=== PATIENT | male | born 1985 | race American Indian/Alaskan Native ===

== ENCOUNTER 2016-12-28 17:20 | Emergency (ER) | payer SELFPAY ==
[2016-12-28 18:53] LABS: Alanine Aminotransferase 16 units/L (7-56); Albumin 4.4 g/dL (3.9-5); Albumin/Globulin Ratio 1.3 %; Alkaline Phosphatase 71 units/L (35-129); Anion Gap 18 mmol/L; BUN/Creatinine Ratio 13.75; Bilirubin,Total 0.5 mg/dL (0.1-1.2); Blood Urea Nitrogen 11 mg/dL (9-20); Carbon Dioxide 27 mmol/L (22-30); Chloride 100.1 mmol/L (98-107); Glucose 79 mg/dL (75-100); Lipase 18 units/L (13-60); Sodium 141 mmol/L (137-145); Total Protein 7.8 g/dL (6.3-8.2)
[2016-12-28 18:58] LABS: Hematocrit 46.5 % (35.5-45.6); Hemoglobin 14.8 gm/dl (11.8-15.2); Mean Corpuscular HGB Conc 32 % (32-34); Mean Corpuscular Hemoglobin 27 pg (28-32); Mean Corpuscular Volume 84 fl (84-94); Platelet Count 132 K/mm3 (140-440); Red Blood Count 5.51 M/mm3 (3.65-5.03); Red Cell Distribution Width 14.5 % (13.2-15.2); White Blood Count 5.9 K/mm3 (4.5-11.0)
[2016-12-28 19:07] LABS: Basophils % (Auto) 0.5 % (0.0-1.8); Eosinophils % (Auto) 1.4 % (0.0-4.3)
[2016-12-28 19:20] LABS: Bilirubin,Urine NEG (Negative); Blood,Urine NEG (Negative); Ketones,Urine NEG (Negative); Leukocyte Esterase,Urine NEG (Negative); Mucus,Urine FEW /HPF; Nitrite,Urine NEG (Negative); Protein,Urine <15 mg/dL mg/dL (Negative)
[2016-12-28 19:38] LABS: Basophils % (Manual) 0 % (0.0-1.8); Blastocytes % (Manual) 0 %
[2016-12-28 19:39] LABS: Anisocytosis 1+; Large Platelets 1+; Platelet Estimate Consistent w Auto; Poikilocytosis 1+
[2016-12-28 19:40] LABS: Diff Status Complete
--- NOTE | 2016-12-28 21:27 | Emergency Department Report ---
HPI - General Chief Complaint: Abdominal Pain Time Seen by Provider: 12/28/16 21:25 - HPI HPI: This is a 31-year-old Afro-Stateless male presents to the emergency department with a one-week history of epigastric and right upper quadrant abdominal pain. Patient says he had a history of this when he was in jail and "they did not do anything about it." He just got out of jail in November of this year. He says that the pain as a burning sensation and it worsens after eating. He denies any fever, nausea, vomiting, diarrhea, back pain. He took some Pepto- Bismol and one Motrin per day over this time but is not on any relief. He only has a past medical history of herpes. He is a tobacco smoker. He does not have a primary care doctor. No recent travel or sick contacts at home. ED Past Medical Hx - Past Medical History Previous Medical History?: No - Surgical History Past Surgical History?: No - Medications Home Medications: Home Medications Medication Instructions Recorded Confirmed Last Taken Type Famotidine [Pepcid] 40 mg PO QDAY #30 tablet 12/29/16 Unknown Rx ED Review of Systems ROS: Stated complaint: DIZZINESS Other details as noted in HPI Comment: All other systems reviewed and negative Constitutional: denies: chills, fever Eyes: denies: eye pain, eye discharge, vision change ENT: denies: ear pain, throat pain Respiratory: denies: cough, shortness of breath, wheezing Cardiovascular: denies: chest pain, palpitations Gastrointestinal: abdominal pain. denies: nausea, vomiting Genitourinary: denies: urgency, dysuria Musculoskeletal: denies: back pain, joint swelling, arthralgia Skin: denies: rash, lesions Neurological: denies: headache, weakness, paresthesias Physical Exam - Physical Exam Vital Signs: Vital Signs 12/28/16 12/28/16 18:07 21:16 Temperature 98.6 F Pulse Rate 72 58 L Respiratory 17 18 Rate Blood Pressure 116/62 Blood Pressure 140/78 [Left] O2 Sat by Pulse 99 100 Oximetry Physical Exam: GENERAL: The patient is well-developed well-nourished. HEENT: Normocephalic. Atraumatic. Extraocular motions are intact. Patient has moist mucous membranes. Pupils equal reactive to light bilaterally. NECK: Supple. Trachea is midline. CHEST/LUNGS: Clear to auscultation. There is no respiratory distress noted. HEART/CARDIOVASCULAR: Regular. There is no tachycardia. There is no gallop rub or murmur. ABDOMEN: Abdomen is soft. There is some tenderness to palpation to the epigastric and right upper quadrants of the abdomen. No guarding or rebound tenderness. No peritoneal signs. Patient has normal bowel sounds. There is no abdominal distention. SKIN: There is no rash. There is no edema. There is no diaphoresis. NEURO: The patient is awake, alert, and oriented. The patient is cooperative. The patient has no focal neurologic deficits. The patient has normal speech. MUSCULOSKELETAL: There is no tenderness or deformity. There is no limitation range of motion. There is no evidence of acute injury. ED Course Vital Signs 12/28/16 12/28/16 18:07 21:16 Temperature 98.6 F Pulse Rate 72 58 L Respiratory 17 18 Rate Blood Pressure 116/62 Blood Pressure 140/78 [Left] O2 Sat by Pulse 99 100 Oximetry ED Medical Decision Making - Lab Data Result diagrams: 12/28/16 18:19 12/28/16 18:19 - Radiology Data Radiology results: report reviewed, image reviewed interpreted by me: Abdominal x-ray does not show any acute process. Right upper quadrant abdominal ultrasound does not show any acute process. - Medical Decision Making 31-year-old male presents to the emergency department with upper abdominal burning discomfort. Patient's labs are unremarkable. Vital signs stable throughout his ED course. An abdominal x-ray did not show any signs of obstruction or any acute process. Abdominal ultrasound did not show any signs of gallstones or any other acute process. Patient was given a GI cocktail and upon reevaluation he says he is feeling much better. Patient's symptoms appear consistent with GERD. He will be treated with Pepcid and we discussed dietary changes. He was given referrals for primary care. He will return to the ER with any worsening of symptoms or any acute distress. - Differential Diagnosis GERD, pancreatitis, cholecystitis, cholelithiasis, viral syndrome Critical Care Time: No Critical care attestation.: If time is entered above; I have spent that time in minutes in the direct care of this critically ill patient, excluding procedure time. ED Disposition Clinical Impression: Epigastric abdominal pain GERD (gastroesophageal reflux disease) Qualifiers: Esophagitis presence: esophagitis presence not specified Qualified Code(s): K21.9 - Gastro-esophageal reflux disease without esophagitis Disposition: DISCHARGED TO HOME OR SELFCARE Is pt being admited?: No Condition: Good Instructions: Diet for Ulcers and Gastritis (ED), Gastroesophageal Reflux Disease (ED) Additional Instructions: Please follow-up with a primary care doctor in the next few days. Try to stay away from foods/drinks that are acidic, caffeinated, tomato-based and try to avoid alcohol. Return to the emergency department with any worsening of her symptoms, dark black stools, or any acute distress Prescriptions: Famotidine [Pepcid] 40 mg PO QDAY #30 tablet Referrals: PRIMARY CARE, [Primary Care Provider] - 3-5 Days MARK MORGAN MD [Staff Physician] - 3-5 Days [facility] [Outside] - 3-5 Days [facility] [Outside] - 3-5 Days [facility] [Outside] - 3-5 Days Time of Disposition: 00:34
[2016-12-28] MEDS: ALUM-MAG HYDROX-SIMETH 200-200-20MG/5ML PO ONE (22:22)
[2016-12-28] MEDS: LIDOCAINE VISCOUS 2% PO ONE (22:22)
--- NOTE | 2016-12-29 00:13 | Ultrasound Report ---
FINAL REPORT EXAM: US ABDOMEN LIMITED HISTORY: RUQ and epigastric pain COMPARISON: None available. TECHNIQUE: Several real-time grayscale and color Doppler images were obtained. FINDINGS: Gallbladder is contracted. This limits evaluation of gallbladder wall thickening. No shadowing gallstones or pericholecystic fluid. Common bile duct measures 4 millimeters. Homogeneous echogenicity of the visualized liver. Visualized aorta is normal in caliber. Visualized portal vein is patent. The right kidney measures 11.3 centimeters in length. No hydronephrosis. Images of left lower quadrant obtained. No gross abnormal soft tissue mass or fluid collection demonstrated by ultrasound in that region. IMPRESSION: No cholelithiasis or biliary dilatation.
[2016-12-29 00:48] VITALS: BP 111/71
--- NOTE | 2016-12-29 09:26 | XRay Report ---
ABDOMEN TWO VIEWS: History: Abdominal pain. There is no evidence of free air beneath the diaphragms. The gas pattern within the abdomen is unremarkable. There is no evidence of bowel dilatation, significant air-fluid levels, or masses. The psoas margins are adequately visualized. IMPRESSION: Unremarkable abdomen.
== END 2016-12-29 00:55 | disposition home or self-care (01) ==
LOC: ED 17:20
DX: K21.9 Gastro-esophageal reflux disease without esophagitis (principal)
CPT/HCPCS: 36415; 74020; 76705; 80053; 81001; 83690; 85007; 85025